=== PATIENT | female | born 1965 | race Caucasian/White ===

== ENCOUNTER 2017-04-30 23:57 | Emergency (ER) | payer SELFPAY, OTHER ==
[2017-05-01] MEDS: SOD CHLORIDE 0.9% 1,000 ML IV (01:23)
[2017-05-01] MEDS: ACETAMINOPHEN 500 MG TAB PO (01:25)
[2017-05-01] MEDS: MECLIZINE 12.5 MG TAB PO (01:25)
[2017-05-01] MEDS: ONDANSETRON 4 MG INJ IV (01:25)
[2017-05-01 02:19] LABS: ADD MAN DIFF? NO
[2017-05-01 02:21] LABS: WHITE BLOOD COUNT 10.4 10^3/ul (4.8-10.8)
[2017-05-01 02:21] LABS: BASOPHILS % 0.3 % (0.0-2.0); EOSINOPHILS % 0.2 % (0.0-7.0); HEMATOCRIT 42.1 % (37.0-47.0); HEMOGLOBIN 15.1 g/dl (12.0-16.0); LYMPHOCYTES # 1.7 10^3/ul (0.8-2.9); LYMPHOCYTES % 16.5 % (15.0-51.0); MEAN CORPUSCULAR HEMOGLOBIN 31.5 pg (29.0-33.0); MEAN CORPUSCULAR HGB CONC 35.9 g/dl (32.0-37.0); MEAN CORPUSCULAR VOLUME 87.7 fl (82.0-101.0); MEAN PLATELET VOLUME 11.5 fl (7.4-10.4); MONOCYTE # 0.3 10^3/ul (0.3-0.9); MONOCYTES % 2.6 % (0.0-11.0); NEUTROPHIL # 8.3 10^3/ul (1.6-7.5); NEUTROPHILS % 80.1 % (39.0-77.0); PLATELET COUNT 178 10^3/UL (140-415); RED CELL DISTRIBUTION WIDTH 11.1 % (11.5-14.5)
[2017-05-01 02:43] LABS: ADD UMIC YES; UR ASCORBIC ACID NEGATIVE (NEGATIVE); UR BACTERIA FEW /HPF (NONE SEEN); UR BILIRUBIN (Dip) NEGATIVE (NEGATIVE); UR BLOOD (Dip) NEGATIVE (NEGATIVE); UR CLARITY SLIGHTLY CLOUDY (CLEAR); UR COLOR YELLOW (YELLOW); UR GLUCOSE (Dip) 3+ mg/dL (NEGATIVE); UR KETONES (Dip) 2+ mg/dL (NEGATIVE); UR LEUKOCYTE ESTERASE (Dip) NEGATIVE Leu/ul (NEGATIVE); UR NITRITE (Dip) NEGATIVE (NEGATIVE); UR RBC 1 /HPF (0-5); UR SPECIFIC GRAVITY (Dip) 1.022 (1.003-1.030); UR SQUAMOUS EPITHELIAL CELL FEW /HPF (FEW); UR TOTAL PROTEIN (Dip) 1+ mg/dl (NEGATIVE); UR UROBILINOGEN (Dip) NEGATIVE (NEGATIVE); UR WBC 2 /HPF (0-5)
[2017-05-01 02:44] LABS: ALANINE AMINOTRANSFERASE 114 IU/L (13-69); ALBUMIN 4.6 g/dl (3.3-4.9); ALBUMIN/GLOBULIN RATIO 1.31; ALKALINE PHOSPHATASE 211 IU/L (42-121); ANION GAP 17 (8-16); ASPARTATE AMINO TRANSFERASE 82 IU/L (15-46); BILIRUBIN,INDIRECT 0.5 mg/dl (0-1.1); BILIRUBIN,TOTAL 0.5 mg/dl (0.2-1.3); BLOOD UREA NITROGEN 17 mg/dl (7-20); CALCIUM 9.8 mg/dl (8.4-10.2); CARBON DIOXIDE 30 mmol/L (21-31); CHLORIDE 102 mmol/L (97-110); GLUCOSE 234 mg/dl (70-220); LIPASE 94 U/L (23-300); POTASSIUM 3.9 mmol/L (3.5-5.1); SODIUM 145 mmol/L (135-144); TOTAL PROTEIN 8.1 g/dl (6.1-8.1)
== END 2017-05-01 03:45 | disposition home or self-care (01) ==
LOC: FTE 23:57
DX: H65.01 Acute serous otitis media, right ear (principal); H81.11 Benign paroxysmal vertigo, right ear; I10 Essential (primary) hypertension; E11.9 Type 2 diabetes mellitus without complications; Z79.4 Long term (current) use of insulin
CPT/HCPCS: 36415; 70450; 80053; 81001; 82962; 83690; 85025; 96374; 99285-25